=== PATIENT | female | born 1955 | race Caucasian/White ===

== ENCOUNTER 2019-02-21 14:08 | Emergency (ER) | payer OTHER ==
[2019-02-21] MEDS ORDERED: Triamcinolone Acetonide 40 MG/ML 1 ML MDV IM ONE (15:45)
[2019-02-21] MEDS ORDERED: LORazepam 0.5 MG Tab PO ONE (15:45)
--- NOTE | 2019-02-21 15:48 | EDM.PDOC ---
ED HPI GENERAL MEDICAL PROBLEM - General Chief Complaint: Skin Complaint Stated Complaint: POSION NEY Time Seen by Provider: 02/21/19 15:53 Source of Information: Reports: Patient History Limitations: Reports: No Limitations - History of Present Illness INITIAL COMMENTS - FREE TEXT/NARRATIVE: pt had a rash on her chest and left fascial area. This is very itchy and she is struggling with the discomfort. Onset: Other ( started 2 days ago. ) Duration: Hour(s): Location: Reports: Face, Chest Associated Symptoms: Reports: No Other Symptoms - Related Data Allergies Allergy/AdvReac Type Severity Reaction Status Date / Time No Known Allergies Allergy Verified 02/21/19 15:34 Home Meds: Home Meds Escitalopram Oxalate 02/21/19 [History] Past Medical History - Past Surgical History HEENT Surgical History: Reports: Tonsillectomy Social & Family History - Tobacco Use Smoking Status *Q: Never Smoker ED ROS GENERAL - Review of Systems Review Of Systems: See Below Constitutional: Reports: No Symptoms HEENT: Reports: No Symptoms Respiratory: Reports: No Symptoms Cardiovascular: Reports: No Symptoms Endocrine: Reports: No Symptoms GI/Abdominal: Reports: No Symptoms : Reports: No Symptoms Skin: Reports: Pruritis, Rash Psychiatric: Reports: Anxiety ED EXAM, SKIN/RASH Exam: See Below Text/Narrative:: pt arrived with a history of a rash which she has had for 3 days. This is very itchy and looks like poison ney. She is very anxious with tghe itching and she is not able to rest. Exam Limited By: No Limitations General Appearance: Alert, Anxious Ears: Normal External Exam Nose: Normal Inspection Throat/Mouth: Normal Inspection Head: Atraumatic Neurological: Alert, Oriented Psychiatric: Anxious Skin: Rash, Other (pt has opoison ney which is on her chest and up along the left side of her face. This is very itchy, ) Location, Skin: Head, Face Course - Vital Signs Last Recorded V/S: Last Vital Signs Temp 35.6 C 02/21/19 15:39 Pulse 66 02/21/19 15:39 Resp 17 02/21/19 15:39 BP 137/76 02/21/19 15:39 Pulse Ox 98 02/21/19 15:39 - Orders/Labs/Meds Meds: Medications Discontinued Medications Generic Name Dose Route Start Last Admin Trade Name Freq PRN Reason Stop Dose Admin Lorazepam 0.5 mg 02/21/19 15:45 Ativan PO 02/21/19 15:46 ONETIME ONE Triamcinolone Acetonide 60 mg 02/21/19 15:45 Kenalog-40 IM 02/21/19 15:46 ASDIRECTED ONE - Re-Assessments/Exams Free Text/Narrative Re-Assessment/Exam: 02/21/19 15:57 pt was given ativan .5 and kenalog 60 mg im. Departure - Departure Time of Disposition: 15:46 Disposition: Home, Self-Care 01 Condition: Fair Clinical Impression: Poison ney dermatitis, Anxiety - Discharge Information Instructions: Generalized Anxiety Disorder, Adult, Poison Ney Dermatitis, Easy- to-Read Referrals: PCP,None [Primary Care Provider] - Forms: ED Department Discharge Care Plan Goals: predisone 10mg 2 tabs daliy for 4 days, benadryl 50 mg q6h prn for itching, ativan .5 q6h as needed for anxiety, kenalog cream apply to the rash bid. rtc if not improving.
== END 2019-02-21 16:08 | disposition home or self-care (01) ==
LOC: JP.ED 14:08
DX: L23.7 Allergic contact dermatitis due to plants, except food (principal); F41.9 Anxiety disorder, unspecified; Z79.899 Other long term (current) drug therapy
CPT/HCPCS: 96372; 99282; A9270; J3301